=== PATIENT | female | born 1930 | race Caucasian/White ===

== ENCOUNTER → 2016-09-27 | Outpatient (CLI) | payer MEDICARE, OTHER ==
[~2016-09-27] MED LIST: ALPR-138 PO; ALPR.25 PO; AMLO5CAP3 PO; ASPI81CH CHEW; ASPI81TA82 PO; ATOR10TA15 PO; ATOR20TA PO; FISH1000 PO; LOTR5CAP3 PO; NORC10TA2 PO; OCUVTAB PO; VITA100T13 PO; VITA100T54 PO
[2016-09-27 09:32] LABS: HEMATOCRIT 35.5 % (35.0-46.0); MEAN CELL VOLUME 86.8 FL (80.0-100.0); MEAN CORPUSCULAR HEMOGLOBIN 29.4 PG (27.0-34.0); MEAN CORPUSCULAR HGB CONC 33.9 % (32.0-36.0); PLATELET COUNT 241 TH/MM3 (150-450); RED BLOOD COUNT 4.09 MIL/MM3 (4.00-5.30); REVIEW FLAG FINAL; WHITE BLOOD COUNT 7.4 TH/MM3 (4.0-11.0)
[2016-09-27 09:41] LABS: ALKALINE PHOSPHATASE 76 U/L (45-117); ALT (GPT) 22 U/L (10-53); ANION GAP 8 MEQ/L (5-15); AST (GOT) 19 U/L (15-37); BICARBONATE 27.4 MEQ/L (21.0-32.0); BLOOD UREA NITROGEN 23 MG/DL (7-18); CHLORIDE 102 MEQ/L (98-107); GLOMERULAR FILTRATION RATE 51 ML/MIN (>89); GLUCOSE,FASTING 90 MG/DL (74-99); HDL CHOLESTEROL 87.7 MG/DL (40.0-60.0); LDL CHOLESTEROL 43 MG/DL (0-99); LDL CHOLESTEROL DIRECT 61 MG/DL (0-99); POTASSIUM 4.2 MEQ/L (3.5-5.1); SODIUM (NA) 137 MEQ/L (136-145); TOTAL BILIRUBIN ADULT 0.3 MG/DL (0.2-1.0)
== END ==
LOC: PLAB 07:48
PROVIDERS: ATTEND Family Medicine
DX: I12.9 Hypertensive chronic kidney disease with stage 1 through stage 4 chronic kidney disease, or unspecified chronic kidney disease (principal); N18.3 Chronic kidney disease, stage 3 (moderate); E78.2 Mixed hyperlipidemia; I65.29 Occlusion and stenosis of unspecified carotid artery
CPT/HCPCS: 36415; 80053; 80061; 83721; 85027

== ENCOUNTER 2016-11-30 19:39 | Observation (INO) | payer MEDICARE, OTHER ==
[~2016-11-30] VITALS: Ht 152.4 cm; Wt 49.9 kg
[~2016-11-30 19:39] MED LIST changes: -ALPR.25 PO; -AMLO5CAP3 PO; -ASPI81CH CHEW; -ATOR10TA15 PO; -FISH1000 PO; -VITA100T54 PO
[2016-11-30 19:47] VITALS: BP 158/64; PULSE 98; RESP 18; TEMP 97.9; O2SAT 98
[2016-11-30] MEDS ORDERED: VITA100T54 PO (19:58)
[2016-11-30] MEDS ORDERED: OCUVTAB PO (19:58)
[2016-11-30] MEDS ORDERED: ATOR10TA15 PO (19:58)
[2016-11-30] MEDS ORDERED: ALPR.25 PO (19:58)
[2016-11-30] MEDS ORDERED: AMLO5CAP3 PO (19:58)
[2016-11-30] MEDS ORDERED: ASPI81CH CHEW (19:58)
[2016-11-30] MEDS ORDERED: FISH1000 PO (19:58)
[2016-11-30] MEDS ORDERED: SODIUM CHLORIDE 0.9% FLUSH 10 ML FLUSH IVF PRN (21:00)
--- NOTE | 2016-11-30 21:06 | PD ---
HPI Chief Complaint: Pain: Acute or Chronic Time Seen by Provider: 20:45 Travel History International Travel<30 days: No Contact w/Intl Traveler<30days: No Traveled to known affect area: No History of Present Illness HPI 86 year old female who presents emergency department for evaluation of left shoulder pain. Patient denies injury. She reports last night around 6 PM while getting ready for bed she noticed that she had left upper back and shoulder pain. She reports the pain is constant, nonradiating, no alleviating factors, 5/10 severity. She denies chest pain, shortness of breath,N/V, diaphoresis. She reports that the pain was severe enough it kept her from sleeping last night. Patient reports she came in for evaluation this evening because the pain persisted and she was concerned she was having a heart attack. Patient has significant past medical history for hypertension, dyslipidemia, carotid artery stenosis. PFSH Past Medical History Blood Disorders: No Anxiety: Yes Cancer: Yes (melonoma l knee) Cardiovascular Problems: Yes (ENLARGED HEART AND CAROTID STENOSIS) High Cholesterol: Yes Diverticulitis: Yes Gastrointestinal Disorders: Yes (DIVERTICULITIS, gerd) GERD: Yes Genitourinary: Yes (bladder incont) Hypertension: Yes ?: Not Menopausal: Yes : 2 Para: 2 Past Surgical History Genitourinary Surgery: Yes (BLADDER SUSPENSION) Gynecologic Surgery: Yes (HYSTERECTOMY AND BLADDER TUCK) Hysterectomy: Yes Tonsillectomy: Yes Other Surgery: Yes Social History Alcohol Use: No Tobacco Use: No Substance Use: No Allergies-Medications (Allergen,Severity, Reaction): Coded Allergies: Penicillin (Verified Allergy, Mild, LOCAL SITE REACTION TO INJECTION 50 YRS AGO "RED SPOTS", 11/30/16) Reported Meds & Prescriptions Reported Meds & Active Scripts Active Reported Fish Oil ([place]-3 Fatty Acids) 1,000 Mg Cap 1,000 Mg PO DAILY Ocuvite (Multiple Vitamins W/ Minerals) 1 Tab 1 Tab PO DAILY Xanax (Alprazolam) 0.25 Mg Tab 0.25 Mg PO Q8H PRN Vitamin B-1 (Thiamine HCl) 100 Mg Tab 100 Mg PO DAILY Atorvastatin (Atorvastatin Calcium) 10 Mg Tab 10 Mg PO HS Aspirin 81 Mg Chew 81 Mg CHEW DAILY Amlodipine-Benazepril 5-20 Mg Cap 1 Cap PO DAILY Atorvastatin 20 mg tab (Atorvastatin Calcium) 20 Mg Tab 20 Mg PO DAILY 30 Days Review of Systems Except as stated in HPI: all other systems reviewed are Neg Physical Exam Narrative GENERAL: [Alert well-appearing elderly female. In no acute distress] SKIN: Focused skin assessment warm/dry. HEAD: Atraumatic. Normocephalic. EYES: Pupils equal and round. No scleral icterus. No injection or drainage. ENT: No nasal bleeding or discharge. Mucous membranes pink and moist. NECK: Trachea midline. No JVD. Nontender. CARDIOVASCULAR: Regular rate and rhythm. No murmur appreciated. RESPIRATORY: No accessory muscle use. Clear to auscultation. Breath sounds equal bilaterally. GASTROINTESTINAL: Abdomen soft, non-tender, nondistended. Hepatic and splenic margins not palpable. MUSCULOSKELETAL: No obvious deformities. No clubbing. No cyanosis. No edema. NEUROLOGICAL: Awake and alert. No obvious cranial nerve deficits. Motor grossly within normal limits. Normal speech. PSYCHIATRIC: Appropriate mood and affect; insight and judgment normal. Data Data Last Documented VS Vital Signs Date Time Temp Pulse Resp B/P Pulse Ox O2 Delivery O2 Flow Rate FiO2 11/30/16 19:47 97.9 98 18 158/64 98 Orders Electrocardiogram (11/30/16 20:50) Basic Metabolic Panel (Bmp) (11/30/16 20:50) Ckmb (Isoenzyme) Profile (11/30/16 20:50) Complete Blood Count With Diff (11/30/16 20:50) Troponin I (11/30/16 20:50) Chest, Single Ap (11/30/16 20:50) Iv Access Insert/Monitor (11/30/16 20:50) Sodium Chloride 0.9% Flush (Ns Flush) (11/30/16 21:00) Aspirin (Aspirin) (11/30/16 21:15) Place In Observation (11/30/16 22:23) Activity Bed Rest With Brp (11/30/16 22:23) Vital Signs (Adult) Q4H (11/30/16 22:23) Cardiac Rhythm .As Directed (11/30/16 22:23) Notify Dr: Other .PRN (11/30/16 22:23) Notify . Parameters (11/30/16 22:23) Resp Oxygen Nasal Cannula (11/30/16 ) Diet Npo (12/01/16 Breakfast) Ckmb (Isoenzyme) Profile (11/30/16 23:00) Ckmb (Isoenzyme) Profile (12/01/16 02:00) Troponin I (11/30/16 23:00) Troponin I (12/01/16 02:00) Electrocardiogram (11/30/16 23:00) Electrocardiogram (12/01/16 02:00) ^ Obtain (11/30/16 22:23) Sodium Chloride 0.9% Flush (Ns Flush) (11/30/16 22:30) Sodium Chloride 0.9% Flush (Ns Flush) (12/01/16 09:00) Noodle Maker / Telemetry RUEL.Q8H (11/30/16 22:23) Admit Order (Ed Use Only) (11/30/16 22:23) Labs Laboratory Tests Test 11/30/16 20:00 White Blood Count 8.0 TH/MM3 Red Blood Count 4.14 MIL/MM3 Hemoglobin 12.6 GM/DL Hematocrit 36.0 % Mean Corpuscular Volume 87.1 FL Mean Corpuscular Hemoglobin 30.4 PG Mean Corpuscular Hemoglobin 34.9 % Concent Red Cell Distribution Width 13.1 % Platelet Count 238 TH/MM3 Mean Platelet Volume 7.7 FL Neutrophils (%) (Auto) 64.4 % Lymphocytes (%) (Auto) 25.2 % Monocytes (%) (Auto) 7.6 % Eosinophils (%) (Auto) 1.7 % Basophils (%) (Auto) 1.1 % Neutrophils # (Auto) 5.2 TH/MM3 Lymphocytes # (Auto) 2.0 TH/MM3 Monocytes # (Auto) 0.6 TH/MM3 Eosinophils # (Auto) 0.1 TH/MM3 Basophils # (Auto) 0.1 TH/MM3 CBC Comment DIFF FINAL Differential Comment Sodium Level 136 MEQ/L Potassium Level 4.4 MEQ/L Chloride Level 104 MEQ/L Carbon Dioxide Level 26.6 MEQ/L Anion Gap 5 MEQ/L Blood Urea Nitrogen 22 MG/DL Creatinine 1.20 MG/DL Estimat Glomerular Filtration 43 ML/MIN Rate Random Glucose 95 MG/DL Calcium Level 9.4 MG/DL Total Creatine Kinase 76 U/L Troponin I LESS THAN 0.02 NG/ML MDM Medical Decision Making Medical Screen Exam Complete: Yes Emergency Medical Condition: Yes Medical Record Reviewed: Yes Differential Diagnosis ACS, atypical chest pain, cervical radiculopathy Narrative Course 86-year-old female with significant past medical history of hypertension, dyslipidemia, carotid artery stenosis presents emergency department for evaluation of left shoulder pain. Patient reports this pain began spontaneously last night 6 PM while she was getting ready for bed. She reports the pain was constant localized to the left shoulder and kept her up all night. She reports no alleviating factors to the pain. She reports she came in for evaluation today because she was concerned she was having a heart attack because she has heard that women may experience left shoulder pain while having a heart attack. IV established and labs pending EKG obtained. EKG: Sinus rhythm rate [address] changes Chest x-ray: No acute disease. Normal mediastinum. Troponin:0.02 Due to patient's multiple risk factors patient will be admitted to the chest pain center for serial enzymes and EKGs. Patient's history,physical exam findings and diagnostic studies were discussed with Dr. Thomas attending physician who evaluated patient and agrees the patient should come in for chest pain rule out. This was discussed with patient and she agrees she would like to stay in the hospital for repeat testing. Diagnosis Primary Impression: Nontraumatic shoulder pain Qualified Code: M25.512 - Nontraumatic shoulder pain, left Admitting Information Admitting Physician Requests: Zenaida Milian November 30, 2016 21:06
[2016-11-30] MEDS ORDERED: ASPIRIN 325 MG TAB PO ONE (21:15)
[2016-11-30 21:17] LABS: CHLORIDE 104 MEQ/L (98-107); POTASSIUM 4.4 MEQ/L (3.5-5.1); SODIUM (NA) 136 MEQ/L (136-145)
[2016-11-30 21:20] LABS: ANION GAP 5 MEQ/L (5-15); AUTOMATED NEUTROPHIL # 5.2 TH/MM3 (1.8-7.7); BASOPHIL # 0.1 TH/MM3 (0-0.2); BASOPHIL % 1.1 % (0.0-2.0); BICARBONATE 26.6 MEQ/L (21.0-32.0); BLOOD UREA NITROGEN 22 MG/DL (7-18); EOSINOPHIL # 0.1 TH/MM3 (0-0.4); EOSINOPHIL % 1.7 % (0.0-4.0); HEMO FLAGS DIFF FINAL; LYMPH % 25.2 % (9.0-44.0); MEAN CELL VOLUME 87.1 FL (80.0-100.0); MEAN CORPUSCULAR HEMOGLOBIN 30.4 PG (27.0-34.0); MEAN CORPUSCULAR HGB CONC 34.9 % (32.0-36.0); MONO % 7.6 % (0.0-8.0); NEUT % 64.4 % (16.0-70.0); PLATELET COUNT 238 TH/MM3 (150-450); RED BLOOD COUNT 4.14 MIL/MM3 (4.00-5.30); RED CELL DISTRIBUTION WIDTH 13.1 % (11.6-17.2)
[2016-11-30 21:23] LABS: GLOMERULAR FILTRATION RATE 43 ML/MIN (>89)
--- NOTE | 2016-11-30 21:27 | RADHPO ---
EXAM DATE/TIME: 11/30/2016 21:09 [facility] COMPARISON: CHEST PA & LAT, April 17, 2015, 11:48. INDICATIONS : Upper chest and neck pain. MEDICAL HISTORY : None. SURGICAL HISTORY : None. ENCOUNTER: Initial ACUITY: 1 day PAIN SCORE: 3/10 LOCATION: upper chest FINDINGS: A single view of the chest demonstrates the lungs to be symmetrically aerated without evidence of mas s, infiltrate or effusion. Calcified granulomas within the lung bases bilaterally are stable. The car diomediastinal contours are unremarkable. Osseous structures are intact. CONCLUSION: No acute disease. Henry Tapia Jr., MD on November 30, 2016 at 21:25 Board Certified Radiologist. This report was verified electronically.
[2016-11-30 21:35] LABS: CREATINE KINASE 76 U/L (26-192)
[2016-11-30 22:28] VITALS: BP 151/73; PULSE 74; RESP 18; O2SAT 98
[2016-11-30 22:30] VITALS: O2SAT 99
[2016-11-30] MEDS ORDERED: SODIUM CHLORIDE 0.9% FLUSH 10 ML FLUSH IV FLUSH PRN (22:30)
[2016-11-30 23:37] VITALS: BP 147/72
[2016-12-01] VITALS: BP 149/72; PULSE 80; RESP 20; TEMP 96.2; O2SAT 100
[2016-12-01 00:14] LABS: CREATINE KINASE 82 U/L (26-192)
[2016-12-01 02:41] LABS: CREATINE KINASE 72 U/L (26-192)
[2016-12-01 04:00] VITALS: BP 185/86; PULSE 84; RESP 20; TEMP 96.4; O2SAT 100
[2016-12-01] MEDS ORDERED: ALPRAZolam 0.25 MG TAB PO ONE (04:30)
[2016-12-01] MEDS ORDERED: ACETAMINOPHEN 325 MG TAB PO ONE (04:30)
[2016-12-01 07:45] VITALS: PULSE 68
[2016-12-01 08:00] VITALS: BP 135/64; PULSE 70; RESP 17; TEMP 97.9; O2SAT 98
[2016-12-01] MEDS ORDERED: SODIUM CHLORIDE 0.9% FLUSH 10 ML FLUSH SCH (09:00)
[2016-12-01] MEDS ORDERED: LISINOPRIL 20 MG TAB PO SCH (09:00)
[2016-12-01] MEDS ORDERED: NON-FORMULARY DRUG (Amlodipine-Benazepril 1 CAP) PO SCH (09:00)
[2016-12-01] MEDS ORDERED: ASPIRIN 81 MG CHEW TAB CHEW SCH (09:00)
[2016-12-01] MEDS ORDERED: THIAMINE HCL 100 MG TAB PO SCH (09:00)
[2016-12-01] MEDS ORDERED: amLODIPine BESYLATE 5 MG TAB PO SCH (09:00)
--- NOTE | 2016-12-01 09:14 | EKG ---
Date Performed: 11/30/2016 Time Performed: 22:44:16 PTAGE: 86 years EKG: Sinus rhythm with borderline 1st degree A-V block. Borderline ECG PREVIOUS TRACING : 11/30/2016 20.50 DOCTOR: Ehsan Brody Interpretating Date/Time 12/01/2016 09:12:14
--- NOTE | 2016-12-01 09:15 | EKG ---
Date Performed: 11/30/2016 Time Performed: 20:50:24 PTAGE: 86 years EKG: Sinus rhythm . Normal ECG PREVIOUS TRACING : 04/17/2015 10.57 DOCTOR: Ehsan Brody Interpretating Date/Time 12/01/2016 09:13:31
--- NOTE | 2016-12-01 09:40 | HHI.HP ---
[facility] [place] [facility] Mina George MD Admission Diagnosis chest pain r/o Diagnoses: (1) Neck and shoulder pain Diagnosis: Principal (2) Acute kidney injury superimposed on chronic kidney disease Diagnosis: Principal Chief Complaint: neck and shoulder pain Travel History International Travel<30 Days: No Contact w/Intl Traveler <30 Da: No Traveled to Known Affected Are: No History of Present Illness Written by Skyla Denton PA-C acting as scribe for Dr. Jackson on 12/01/16 at 0920. 86-year-old female with history of hypertension, hyperlipidemia, GERD , anxiety presents complaining of neck and left shoulder pain. Patient states pain started on Tuesday over the back of her neck and radiated to her left shoulder. She states it was an 8/10 and was constant. She states she tried to shift her position every 2 hours without relief. She also tried Aspercreme and Tylenol without relief. She states the pain is still present now but is improved. Although she states it was terrible last night and caused her head to her at that time. Denies pain when moving the neck. She states she came to the ED because of the radiation of pain to the left shoulder. She denies ever having any chest pain or shortness of breath, diaphoresis, nausea, or vomiting. She denies any prior history of this type of pain. She admits to some chronic numbness in her right foot from sciatica but denies any numbness or tingling in the upper extremities. Admits to feeling nervous currently. Review of Systems Except as stated in HPI: all other systems reviewed are Neg Past Family Social History Past Medical History 30% stenosis of left carotid artery per patient Hypertension Hyperlipidemia GERD Diverticulitis Melanoma left knee Anxiety Past Surgical History Hysterectomy Bladder suspension Cyst removal from the spine Tonsillectomy Reported Medications Fish Oil ([place]-3 Fatty Acids) 1,000 Mg Cap 1,000 Mg PO DAILY Ocuvite (Multiple Vitamins W/ Minerals) 1 Tab 1 Tab PO DAILY Xanax (Alprazolam) 0.25 Mg Tab 0.25 Mg PO Q8H PRN Vitamin B-1 (Thiamine HCl) 100 Mg Tab 100 Mg PO DAILY Atorvastatin (Atorvastatin Calcium) 10 Mg Tab 10 Mg PO HS Aspirin 81 Mg Chew 81 Mg CHEW DAILY Amlodipine-Benazepril 5-20 Mg Cap 1 Cap PO DAILY Allergies: Coded Allergies: Penicillin (Verified Allergy, Mild, LOCAL SITE REACTION TO INJECTION 50 YRS AGO "RED SPOTS", 11/30/16) Family History Family history unknown as the patient is adopted. Social History Patient quit smoking cigarettes in 1963. Physical Exam Vital Signs Vital Signs Date Time Temp Pulse Resp B/P Pulse Ox O2 Delivery O2 Flow Rate FiO2 12/01/16 08:00 97.9 70 17 135/64 98 12/01/16 07:45 68 12/01/16 04:00 96.4 84 20 185/86 100 12/01/16 00:00 96.2 80 20 149/72 100 11/30/16 23:37 78 18 147/72 99 11/30/16 23:30 18 11/30/16 22:30 99 21 11/30/16 22:28 74 18 151/73 98 Room Air 11/30/16 19:47 97.9 98 18 158/64 98 Physical Exam GENERAL: This is a pleasant elderly well-nourished, well-developed patient, in no apparent distress. SKIN: No rashes, ecchymoses or lesions. Warm and dry. HEAD: Atraumatic. Normocephalic. EYES: Pupils equal round. Extraocular motions intact. No scleral icterus. No drainage. ENT: Throat without erythema or exudate. Uvula midline. Airway patent. NECK: Trachea midline. No lymphadenopathy. Supple, nontender over cervical spine. CARDIOVASCULAR: Regular rate and rhythm without murmurs, gallops, or rubs. RESPIRATORY: Clear to auscultation. Breath sounds equal bilaterally. No wheezes , rales, or rhonchi. GASTROINTESTINAL: Normoactive bowel sounds. Abdomen soft, non-tender, nondistended. No guarding. MUSCULOSKELETAL: Reproducible tenderness over the left trapezius muscles. No lower extremity edema bilaterally. NEUROLOGICAL: Awake and alert. Motor grossly within normal limits. Ambulates normally. Normal speech. Laboratory Laboratory Tests Test 11/30/16 11/30/16 12/01/16 20:00 23:30 02:05 White Blood Count 8.0 Red Blood Count 4.14 Hemoglobin 12.6 Hematocrit 36.0 Mean Corpuscular Volume 87.1 Mean Corpuscular Hemoglobin 30.4 Mean Corpuscular Hemoglobin 34.9 Concent Red Cell Distribution Width 13.1 Platelet Count 238 Mean Platelet Volume 7.7 Neutrophils (%) (Auto) 64.4 Lymphocytes (%) (Auto) 25.2 Monocytes (%) (Auto) 7.6 Eosinophils (%) (Auto) 1.7 Basophils (%) (Auto) 1.1 Neutrophils # (Auto) 5.2 Lymphocytes # (Auto) 2.0 Monocytes # (Auto) 0.6 Eosinophils # (Auto) 0.1 Basophils # (Auto) 0.1 CBC Comment DIFF FINAL Differential Comment Sodium Level 136 Potassium Level 4.4 Chloride Level 104 Carbon Dioxide Level 26.6 Anion Gap 5 Blood Urea Nitrogen 22 Creatinine 1.20 Estimat Glomerular Filtration 43 Rate Random Glucose 95 Calcium Level 9.4 Total Creatine Kinase 76 82 72 Troponin I LESS THAN 0.02 LESS THAN 0.02 LESS THAN 0.02 Result Diagram: 11/30/16199911/30/161999 Imaging Last Impressions Chest X-Ray 11/30/162049 Signed Impressions: Service Date/Time: Wednesday, November 30, 2016 21:09 - CONCLUSION: No acute disease. Henry Tapia Jr., MD Assessment and Plan Assessment and Plan 86 female with: Neck and left shoulder pain: Starting yesterday. Patient has reproducible tenderness over the left shoulder. Patient denies cardiac symptoms. CBC unremarkable. EKGs x 3 with normal sinus rhythm and no evidence of ischemia. There is mild first degree AV block. Troponin 3 less than 0.02. -Neck and shoulder pain are likely NOT cardiac related and the patient does not wish to proceed with stress test anyway. -She is advised to take Tylenol for pain, apply warm compresses, and use Salonpas patches. GRANT on CKD Stage 3: Creatinine 1.20, previously 1.03 on 09/27/16. -Repeat BMP this morning Chronic medical problems include hypertension and hyperlipidemia: Continue home medications DVT prevention: ambulation Provided BMP improved, will discharge. Discharge disposition: Home in fair condition Diet: Heart healthy, GERD Activity: Regular Medications: Resume home medications. Take Tylenol for pain. Follow-up: Dr. George 1 week attending note; patient is a 86 y/o female with history of hypertension and dyslipidemia who presented to ER with neck and left shoulder pain with no other associated symptoms including chest pain, sob, nausea or diaphoresis. on exam; tenderness noted over the left trapezius muscle. EKG's and serial troponins negative for acute cardiac injury. her pain is somewhat better today. after my discussion with her regarding the stress test and further work-up she decided to go home and have a f/u with her pcp. patient will be discharged home with outpatient f/u. Discussed Condition With patient Skyla Denton December 01, 2016 09:40 Darrisu Jackson MD December 01, 2016 10:14
[2016-12-01 09:56] LABS: POTASSIUM 4.5 MEQ/L (3.5-5.1)
[2016-12-01 10:06] LABS: BICARBONATE 20.9 MEQ/L (21.0-32.0)
--- NOTE | 2016-12-01 10:58 | HHI.DCPOC ---
Discharge Care Plan Diagnosis: (1) Neck and shoulder pain (2) Acute kidney injury superimposed on chronic kidney disease Goals to Promote Your Health * To prevent worsening of your condition and complications * To maintain your health at the optimal level Directions to Meet Your Goals Take your medications as prescribed Follow your dietary instruction Follow activity as directed Keep your appointments as scheduled Take your immunizations and boosters as scheduled If your symptoms worsen call your PCP, if no PCP go to Urgent Care Center or Emergency Room Smoking is Dangerous to Your Health. Avoid second hand smoke Call the 24-hour hour crisis hotline for domestic abuse at Skyla Denton December 01, 2016 10:58
--- NOTE | 2016-12-01 12:33 | EKG ---
Date Performed: 12/01/2016 Time Performed: 01:47:26 PTAGE: 86 years EKG: Sinus rhythm with borderline 1st degree A-V block Possible left atrial abnormality Borderline ECG PREVIOUS TRACING : 11/30/2016 22.44 DOCTOR: Ehsan Brody Interpretating Date/Time 12/01/2016 12:32:55
[2016-12-01] MEDS ORDERED: ATORVASTATIN 10 MG TAB PO SCH (21:00)
== END 2016-12-01 13:55 | disposition home or self-care (01) ==
LOC: PHEFT 19:39 → PHEDA 22:26 → PH5A 23:55
PROVIDERS: ADMIT Internal Medicine; ATTEND Internal Medicine
DX: M25.512 Pain in left shoulder (principal); M54.2 Cervicalgia; I12.9 Hypertensive chronic kidney disease with stage 1 through stage 4 chronic kidney disease, or unspecified chronic kidney disease; N18.3 Chronic kidney disease, stage 3 (moderate); N17.9 Acute kidney failure, unspecified; E78.5 Hyperlipidemia, unspecified; I65.22 Occlusion and stenosis of left carotid artery; F41.9 Anxiety disorder, unspecified; I44.0 Atrioventricular block, first degree; E78.00 Pure hypercholesterolemia, unspecified; K21.9 Gastro-esophageal reflux disease without esophagitis; M54.30 Sciatica, unspecified side; Z88.0 Allergy status to penicillin; Z79.82 Long term (current) use of aspirin; Z85.820 Personal history of malignant melanoma of skin; Z87.891 Personal history of nicotine dependence
CPT/HCPCS: 71010; 80048; 82550; 84484; 85025; 93005; 99285; G0378

== ENCOUNTER → 2016-12-13 | Outpatient (CLI) | payer MEDICARE, OTHER ==
[~2016-12-13] MED LIST changes: -ALPR-138 PO; +ALPR.25 PO; +AMLO5CAP3 PO; +ASPI81CH CHEW; -ASPI81TA82 PO; +ATOR10TA15 PO; -ATOR20TA PO; +FISH1000 PO; -LOTR5CAP3 PO; -NORC10TA2 PO; -VITA100T13 PO; +VITA100T54 PO
[2016-12-13 09:15] LABS: HEMATOCRIT 34.5 % (35.0-46.0); MEAN CELL VOLUME 87.2 FL (80.0-100.0); MEAN CORPUSCULAR HEMOGLOBIN 30.9 PG (27.0-34.0); MEAN CORPUSCULAR HGB CONC 35.5 % (32.0-36.0); PLATELET COUNT 269 TH/MM3 (150-450); RED BLOOD COUNT 3.96 MIL/MM3 (4.00-5.30); RED CELL DISTRIBUTION WIDTH 14.4 % (11.6-17.2); REVIEW FLAG FINAL; WHITE BLOOD COUNT 7.1 TH/MM3 (4.0-11.0)
[2016-12-13 09:42] LABS: ANION GAP 8 MEQ/L (5-15); AST (GOT) 24 U/L (15-37); BICARBONATE 25.8 MEQ/L (21.0-32.0); BLOOD UREA NITROGEN 18 MG/DL (7-18); CHLORIDE 102 MEQ/L (98-107); GLOMERULAR FILTRATION RATE 63 ML/MIN (>89); GLUCOSE,FASTING 88 MG/DL (74-99); POTASSIUM 4.4 MEQ/L (3.5-5.1); SODIUM (NA) 136 MEQ/L (136-145)
[2016-12-13 09:48] LABS: ALKALINE PHOSPHATASE 82 U/L (45-117); ALT (GPT) 40 U/L (10-53); HDL CHOLESTEROL 81.3 MG/DL (40.0-60.0); LDL CHOLESTEROL 62 MG/DL (0-99); LDL CHOLESTEROL DIRECT 59 MG/DL (0-99); TOTAL BILIRUBIN ADULT 0.4 MG/DL (0.2-1.0)
== END ==
LOC: PLAB 07:24
PROVIDERS: ATTEND Family Medicine
DX: I12.9 Hypertensive chronic kidney disease with stage 1 through stage 4 chronic kidney disease, or unspecified chronic kidney disease (principal); N18.3 Chronic kidney disease, stage 3 (moderate); E78.2 Mixed hyperlipidemia; I65.29 Occlusion and stenosis of unspecified carotid artery
CPT/HCPCS: 36415; 80053; 80061; 83615; 83721; 85027

== ENCOUNTER → 2017-03-30 | Outpatient (CLI) | payer MEDICARE, OTHER ==
[2017-03-30 09:35] LABS: HEMATOCRIT 35.3 % (35.0-46.0); MEAN CELL VOLUME 88.5 FL (80.0-100.0); MEAN CORPUSCULAR HEMOGLOBIN 31.4 PG (27.0-34.0); MEAN CORPUSCULAR HGB CONC 35.5 % (32.0-36.0); PLATELET COUNT 241 TH/MM3 (150-450); RED BLOOD COUNT 3.98 MIL/MM3 (4.00-5.30); RED CELL DISTRIBUTION WIDTH 13.1 % (11.6-17.2); REVIEW FLAG FINAL; WHITE BLOOD COUNT 8.1 TH/MM3 (4.0-11.0)
[2017-03-30 10:47] LABS: ANION GAP 6 MEQ/L (5-15); AST (GOT) 20 U/L (15-37); BICARBONATE 27.5 MEQ/L (21.0-32.0); BLOOD UREA NITROGEN 22 MG/DL (7-18); CHLORIDE 103 MEQ/L (98-107); GLOMERULAR FILTRATION RATE 52 ML/MIN (>89); GLUCOSE,FASTING 84 MG/DL (74-99); POTASSIUM 4.3 MEQ/L (3.5-5.1); SODIUM (NA) 136 MEQ/L (136-145)
[2017-03-30 11:02] LABS: ALKALINE PHOSPHATASE 76 U/L (45-117); ALT (GPT) 19 U/L (10-53); HDL CHOLESTEROL 81.3 MG/DL (40.0-60.0); LDL CHOLESTEROL 45 MG/DL (0-99); LDL CHOLESTEROL DIRECT 60 MG/DL (0-99); TOTAL BILIRUBIN ADULT 0.4 MG/DL (0.2-1.0)
== END ==
LOC: PLAB 07:49
PROVIDERS: ATTEND Family Medicine
DX: N18.3 Chronic kidney disease, stage 3 (moderate) (principal); E78.2 Mixed hyperlipidemia; I65.29 Occlusion and stenosis of unspecified carotid artery; I10 Essential (primary) hypertension
CPT/HCPCS: 36415; 80053; 80061; 83721; 85027

== ENCOUNTER → 2017-06-29 | Outpatient (CLI) | payer MEDICARE, OTHER ==
[~2017-06-29] MED LIST changes: +ASPI-516 CHEW; -ASPI81CH CHEW
[2017-06-29 09:18] LABS: HEMATOCRIT 35.9 % (35.0-46.0); HEMOGLOBIN 12.6 GM/DL (11.6-15.3); MEAN CORPUSCULAR HEMOGLOBIN 31.2 PG (27.0-34.0); MEAN PLATELET VOLUME 8.3 FL (7.0-11.0); PLATELET COUNT 290 TH/MM3 (150-450); RED BLOOD COUNT 4.03 MIL/MM3 (4.00-5.30); RED CELL DISTRIBUTION WIDTH 13.4 % (11.6-17.2); WHITE BLOOD COUNT 11.3 TH/MM3 (4.0-11.0)
[2017-06-29 09:35] LABS: ALBUMIN 3.8 GM/DL (3.4-5.0); AST (GOT) 23 U/L (15-37); BICARBONATE 26.2 MEQ/L (21.0-32.0); BLOOD UREA NITROGEN 22 MG/DL (7-18); CALCIUM 9.5 MG/DL (8.5-10.1); CHLORIDE 104 MEQ/L (98-107); GLOMERULAR FILTRATION RATE 59 ML/MIN (>89); GLUCOSE,FASTING 91 MG/DL (74-99); SODIUM (NA) 137 MEQ/L (136-145)
[2017-06-29 09:36] LABS: ALT (GPT) 28 U/L (10-53); CHOLESTEROL 156 MG/DL (120-200); TRIGLYCERIDES 68 MG/DL (42-150)
[2017-06-29 09:39] LABS: ALKALINE PHOSPHATASE 79 U/L (45-117); CHOLESTEROL/ HDL RATIO 1.81 RATIO; HDL CHOLESTEROL 85.9 MG/DL (40.0-60.0); LDL CHOLESTEROL 57 MG/DL (0-99); LDL CHOLESTEROL DIRECT 62 MG/DL (0-99); TOTAL BILIRUBIN ADULT 0.3 MG/DL (0.2-1.0); TOTAL PROTEIN 7.9 GM/DL (6.4-8.2)
== END ==
LOC: PLAB 07:48
PROVIDERS: ATTEND Family Medicine
DX: E78.2 Mixed hyperlipidemia (principal); I10 Essential (primary) hypertension; I65.29 Occlusion and stenosis of unspecified carotid artery
CPT/HCPCS: 36415; 80053; 80061; 83721; 85027

== ENCOUNTER → 2017-10-05 | Outpatient (CLI) | payer MEDICARE, OTHER ==
[2017-10-05 10:01] LABS: HEMATOCRIT 36.6 % (35.0-46.0); HEMOGLOBIN 12.6 GM/DL (11.6-15.3); MEAN CELL VOLUME 88.6 FL (80.0-100.0); MEAN CORPUSCULAR HEMOGLOBIN 30.4 PG (27.0-34.0); MEAN CORPUSCULAR HGB CONC 34.4 % (32.0-36.0); MEAN PLATELET VOLUME 8.8 FL (7.0-11.0); PLATELET COUNT 262 TH/MM3 (150-450); RED BLOOD COUNT 4.13 MIL/MM3 (4.00-5.30); RED CELL DISTRIBUTION WIDTH 13.2 % (11.6-17.2)
[2017-10-05 10:25] LABS: ALBUMIN 3.9 GM/DL (3.4-5.0); AST (GOT) 20 U/L (15-37); BICARBONATE 27.1 MEQ/L (21.0-32.0); BLOOD UREA NITROGEN 24 MG/DL (7-18); CALCIUM 9.4 MG/DL (8.5-10.1); CHLORIDE 104 MEQ/L (98-107); CREATININE 0.94 MG/DL (0.50-1.00); GLOMERULAR FILTRATION RATE 56 ML/MIN (>89); GLUCOSE,FASTING 86 MG/DL (74-99); SODIUM (NA) 138 MEQ/L (136-145)
[2017-10-05 10:26] LABS: CHOLESTEROL 151 MG/DL (120-200)
[2017-10-05 10:29] LABS: ALKALINE PHOSPHATASE 98 U/L (45-117); ALT (GPT) 28 U/L (10-53); HDL CHOLESTEROL 75.4 MG/DL (40.0-60.0); LDL CHOLESTEROL 62 MG/DL (0-99); LDL CHOLESTEROL DIRECT 72 MG/DL (0-99); TOTAL BILIRUBIN ADULT 0.3 MG/DL (0.2-1.0); TOTAL PROTEIN 8.1 GM/DL (6.4-8.2); TRIGLYCERIDES 69 MG/DL (42-150)
== END ==
LOC: PLAB 07:56
PROVIDERS: ATTEND Family Medicine
DX: E78.5 Hyperlipidemia, unspecified (principal); I12.9 Hypertensive chronic kidney disease with stage 1 through stage 4 chronic kidney disease, or unspecified chronic kidney disease; N18.3 Chronic kidney disease, stage 3 (moderate); I65.29 Occlusion and stenosis of unspecified carotid artery
CPT/HCPCS: 36415; 80053; 80061; 83721; 85027